=== PATIENT | female | born 1960 | race Caucasian/White ===

== ENCOUNTER 2017-10-12 11:58 | Day surgery (SDC) | payer BC ==
[~2017-10-12] VITALS: Ht 172.7 cm; Wt 100.5 kg
[~2017-10-12 11:58] MED LIST: BUPROPION PO; CLON.5 PO; CYCL10 PO; DHEA PO; DIVIGEL TOP; KRILL OIL PO; MULVITMIND PO; OMEGA PO; PROG100 PO; RXHYD5325 PO; VITAMIN D PO; ZOLP10 PO; [UNRECOGNIZED DRUG - OTHER] PO
== END 2017-10-12 13:49 | disposition home or self-care (01) ==
LOC: ORSCSDS 11:58
PROVIDERS: Surgery
PROC: 0DJD8ZZ Inspection of Lower Intestinal Tract, Via Natural or Artificial Opening Endoscopic (ICD-10-PCS; principal; 2017-10-12 13:00)
DX: Z12.11 Encounter for screening for malignant neoplasm of colon (principal); Z86.010 Personal history of colon polyps; F32.9 Major depressive disorder, single episode, unspecified; E03.9 Hypothyroidism, unspecified; G47.30 Sleep apnea, unspecified; F51.9 Sleep disorder not due to a substance or known physiological condition, unspecified; E88.89 Other specified metabolic disorders; Z79.899 Other long term (current) drug therapy
CPT/HCPCS: J0330; J1980; J2405

== ENCOUNTER → 2021-02-16 | Outpatient (CLI) | payer BC | LOC: LAB SHORT 20:18 → LAB 20:18 | DX: R30.0 Dysuria (principal) | CPT/HCPCS: 87086 ==